=== PATIENT | male | born 1950 | race Caucasian/White ===

== ENCOUNTER 2016-07-13 11:19 | Emergency (ER) | payer MEDICARE ==
--- NOTE | 2016-07-13 11:53 | ED ---
Chest Pain HPI - General Chief Complaint: Chest Pain Stated Complaint: chest pain Time Seen by Provider: 07/13/16 11:31 Source: patient, family, RN notes reviewed, old records reviewed Mode of arrival: wheelchair Limitations: no limitations - History of Present Illness Initial Comments: This is a 65-year-old male with a history of esophageal cancer status post esophagectomy chemotherapy and recurrence of the same to his liver and lung who presents with complaints of chest pain. He complains of left upper anterior chest pressure. He states currently it's almost negligible feels like tightness. He states he chronically has about 5/10 pain from his cancer the pain in his chest is essentially gone at this time he's had it intermittently over last several days and over the [place] holiday. He states he did not feel nauseated but now feels like he could become nauseated. She denies any cough or phlegm production no fevers chills sweats. He denies any other complaints at this time. His last chemotherapy was approximately 4 weeks ago. He has a CAT scan shows pleural effusion elevated left hemidiaphragm and evidence of metastatic disease left lung. He denies any history of heart disease. MD Complaint: chest pain - Related Data Home Medications Medication Instructions Recorded Confirmed LORazepam [Ativan] 1 mg PO TID PRN 04/13/16 07/13/16 Mirtazapine [Remeron] 30 mg PO HS PRN 04/13/16 07/13/16 Prochlorperazine [Compazine] 10 mg PO Q6H PRN 04/13/16 07/13/16 Ibuprofen [Motrin] 400 mg PO Q6H PRN 05/31/16 07/13/16 oxyCODONE HCL 30 mg PO Q4H PRN 06/17/16 07/13/16 fentaNYL 75MCG/HR PATCH [Duragesic 75 mcg TRANSDERM Q48H 07/13/16 07/13/16 75MCG/HR] Previous Rx's Medication Instructions Recorded Albuterol Inhaler [Ventolin Hfa 2 puff INHALATION Q6HR PRN #1 07/13/16 Inhaler] inhaler Allergies Allergy/AdvReac Type Severity Reaction Status Date / Time No Known Allergies Allergy Verified 07/13/16 12:01 Review of Systems ROS Statement: Those systems with pertinent positive or pertinent negative responses have been documented in the HPI. ROS Other: All systems not noted in ROS Statement are negative. EKG Findings - EKG Results: EKG: interpreted by MEGHAN, sinus rhythm (Sinus rhythm with a rate of 82 QRS 76 QT /QTC of 372/444 poor R-wave progression artifact is present. No acute changes seen) Past Medical History Past Medical History: Cancer, Hypertension, Prostate Disorder Additional Past Medical History / Comment(s): Esophageal CA. Kidney stones. HX BPH. HAD Chemo IV 2 weeks on and 2 weeks off. History of Any Multi-Drug Resistant Organisms: None Reported Past Surgical History: Cholecystectomy, Hernia Repair Additional Past Surgical History / Comment(s): Removal of esophageal CA at [facility] 06/2015. Ischium soft tissue biopsy. schrapnel removed Past Anesthesia/Blood Transfusion Reactions: No Reported Reaction Past Psychological History: Anxiety Smoking Status: Never smoker Past Alcohol Use History: None Reported Past Drug Use History: None Reported - Past Family History Father Family Medical History: Cancer General Exam - General Exam Comments Initial Comments: This is a well-developed asthenic appearing awake alert oriented 3 male Limitations: no limitations General appearance: alert, in no apparent distress Head exam: Present: atraumatic, normocephalic, normal inspection Eye exam: Present: PERRL, EOMI, other (Pale conjunctiva). Absent: scleral icterus, conjunctival injection, periorbital swelling ENT exam: Present: mucous membranes dry Neck exam: Present: normal inspection. Absent: tenderness, meningismus, lymphadenopathy Respiratory exam: Present: decreased breath sounds. Absent: chest wall tenderness Cardiovascular Exam: Present: regular rate, normal rhythm, normal heart sounds. Absent: systolic murmur, diastolic murmur, rubs, gallop, clicks GI/Abdominal exam: Present: soft, normal bowel sounds. Absent: distended, tenderness, guarding, rebound, rigid Extremities exam: Present: full ROM, pedal edema (Pedal edema in the left which is not unusual for him.). Absent: tenderness Back exam: Present: normal inspection Neurological exam: Present: alert, oriented X3, CN II-XII intact Psychiatric exam: Present: normal affect, normal mood Skin exam: Present: warm, dry, intact, pallor Course Vital Signs 07/13/16 07/13/16 07/13/16 11:22 12:41 13:58 Temperature 97.7 F 98.3 F Pulse Rate 86 82 88 Respiratory 96 H 16 Rate Blood Pressure 133/78 110/67 O2 Sat by Pulse 96 98 Oximetry 07/13/16 14:03 Temperature Pulse Rate 96 Respiratory Rate Blood Pressure O2 Sat by Pulse Oximetry Chest Pain MDM - MDM I did reevaluate patient several occasions he is feeling improved after IV fluids and an updraft. He will be discharged she is a follow-up with his doctor return when necessary Disposition Clinical Impression: Atypical chest pain, Bronchospasm, acute, Dehydration, Esophageal cancer, Chronic anemia Disposition: HOME SELF-CARE Condition: Good Instructions: Bronchospasm (ED), Dehydration (ED), Chest Pain (ED) Prescriptions: Albuterol Inhaler [Ventolin Hfa Inhaler] 2 puff INHALATION Q6HR PRN #1 inhaler PRN Reason: Dyspnea
[2016-07-13 12:15] LABS: Anisocytosis Slight; Basophils % (A) 0 %; CH 29.2; CHCM 31.5; Eosinophils # (A) 0.1 k/uL (0-0.7); Eosinophils % (A) 2 %; HCT 30.9 % (39.0-53.0); HDW 3.21; Hypochromasia Slight; Luc # (Auto) 0.04; Luc % (Auto) 1; Lymphocytes # (A) 0.4 k/uL (1.0-4.8); Lymphocytes % (A) 13 %; MCH 29.8 pg (25.0-35.0); MCHC 32.1 g/dL (31.0-37.0); Mean Platelet Volume 7.4; Monocytes # (A) 0.2 k/uL (0-1.0); Monocytes % (A) 7 %; Neutrophils # (A) 2.6 k/uL (1.3-7.7); Neutrophils % (A) 77 %; RBC 3.32 m/uL (4.30-5.90); RDW 17.1 % (11.5-15.5); WBC 3.3 k/uL (3.8-10.6); WBC (Perox) 3.35
[2016-07-13 12:16] LABS: HGB 9.9 gm/dL (13.0-17.5)
[2016-07-13 12:17] LABS: ALT 20 U/L (21-72); AST 15 U/L (17-59); Alkaline Phosphatase 120 U/L (38-126); Anion Gap 11 mmol/L; Blood Urea Nitrogen 16 mg/dL (9-20); Calcium 10.1 mg/dL (8.4-10.2); Carbon Dioxide 29 mmol/L (22-30); Chloride 103 mmol/L (98-107); Glucose 151 mg/dL (74-99); Magnesium 1.8 mg/dL (1.6-2.3); Non-African American GFR(MDRD) >60 (>60 ml/min/1.73 sqM); Potassium 3.8 mmol/L (3.5-5.1); Sodium 143 mmol/L (137-145); Total Bilirubin 0.6 mg/dL (0.2-1.3); Total Protein 6.1 g/dL (6.3-8.2)
[2016-07-13 12:39] LABS: INR 1.1 (<1.1); Partial Thromboplastin Time 31.5 sec (22.0-30.0); Prothrombin Time 11.4 sec (9.0-12.0)
[2016-07-13 12:40] LABS: Creatine Kinase 22 U/L (55-170)
[2016-07-13 12:41] VITALS: RESP 16
--- NOTE | 2016-07-13 12:46 | XR ---
EXAMINATION TYPE: XR chest 2V DATE OF EXAM: 07/13/2016 12:17 PM COMPARISON: 05/31/2016 HISTORY: Chest pain FINDINGS: There is a 1 cm nodule the right upper lobe noted. Small left pleural effusion. Mediport catheter see n. The form of the anterior margin of the left lower rib cage. Been the basis of bony metastases. Api [place] left pleural thickening noted. Additional skeletal findings seen by bone scan not as apparent on x-ray. IMPRESSION: 1. Mild left apical pleural thickening is new. Nodularity in the right upper lobe is noted and report ed by recent CT. 2. Small left pleural effusion
[2016-07-13 12:52] LABS: Creatine Kinase MB 0.5 ng/mL (0.0-2.4); Troponin I <0.012 ng/mL (0.000-0.034)
[2016-07-13] MEDS ORDERED: SODIUM CHLORIDE 0.9% 500 ML IV STA (13:53)
[2016-07-13] MEDS ORDERED: IPRATROPIUM-ALBUTEROL 3 ML NEB INHALATION STA (13:53)
[2016-07-13 14:50] VITALS: BP 126/79; PULSE 82; TEMP 98
== END 2016-07-13 14:49 | disposition home or self-care (01) ==
LOC: EC 11:19
DX: J98.01 Acute bronchospasm (principal); E86.0 Dehydration; D64.9 Anemia, unspecified; J90 Pleural effusion, not elsewhere classified; R91.8 Other nonspecific abnormal finding of lung field; C15.9 Malignant neoplasm of esophagus, unspecified; C78.7 Secondary malignant neoplasm of liver and intrahepatic bile duct; C78.00 Secondary malignant neoplasm of unspecified lung; Z92.21 Personal history of antineoplastic chemotherapy; Z79.899 Other long term (current) drug therapy
CPT/HCPCS: 36415; 71020; 80053; 82550; 82553; 83735; 83880; 84484; 85025; 85610; 85730; 93005; 94640; 99285

== ENCOUNTER 2016-08-03 06:33 | Observation (INO) | payer MEDICARE ==
[2016-08-03] MEDS ORDERED: SODIUM CHLORIDE 0.9% 500 ML IV ONE (06:34)
[2016-08-03] MEDS ORDERED: HYDROmorphone 1 MG/ML 1 ML SYRINGE IVP STA (06:34)
--- NOTE | 2016-08-03 06:50 | ED ---
Fall HPI - General Source: patient, family, EMS Mode of arrival: EMS <Domo Dougherty - Last Filed: 08/03/16 07:12> <Hugh Villavicencio - Last Filed: 08/03/16 11:40> - General Chief Complaint: Fall Stated Complaint: fall-standing height Time Seen by Provider: 08/03/16 06:33 - History of Present Illness Initial Comments: This is a 66-year-old male with a history of esophageal cancer who presents here in [facility] after a fall. He states he was ambulating with his walker and the wheel caught the edge of the stair. He hit his left ribs on the side of the stairs and then he rotated over and hit his right hip on the ground. He states he also went back and hit the back of his head on the ground. He denies loss of consciousness. He states he was not able to get up because of the pain. He states he has worsening pain in his left chest after he takes deep breaths. He denies any lower extremity pain. He does state that he has some pain in his left hip. No headache, neck pain, nausea, or vomiting. No preceding symptoms. No other complaints. (Domo Dougherty) - Related Data Home Medications Medication Instructions Recorded Confirmed Mirtazapine [Remeron] 30 mg PO HS 04/13/16 08/03/16 Ibuprofen [Motrin] 400 mg PO Q6H PRN 05/31/16 08/03/16 oxyCODONE HCL 30 mg PO Q4H 06/17/16 08/03/16 fentaNYL 75MCG/HR PATCH [Duragesic 1 patch TRANSDERM Q48H 07/13/16 08/03/16 75MCG/HR] LORazepam [Ativan] 0.5 mg PO Q8H 08/03/16 08/03/16 Loperamide [Imodium] 2 mg PO QID PRN 08/03/16 08/03/16 Nivolumab [Opdivo] 240 mg IV Q14D 08/03/16 08/03/16 Polyethylene Glycol 3350 [Miralax] 17 gm PO DAILY 08/03/16 08/03/16 fentaNYL 100MCG/HR PATCH 1 patch TRANSDERM Q48H 08/03/16 08/03/16 [Duragesic 100MCG/HR] oxyCODONE ER [OxyCONTIN 20MG E.R] 20 mg PO Q12HR 08/03/16 08/03/16 Allergies Allergy/AdvReac Type Severity Reaction Status Date / Time No Known Allergies Allergy Verified 08/03/16 06:36 Review of Systems ROS Other: All systems not noted in ROS Statement are negative. <Domo Dougherty - Last Filed: 08/03/16 07:12> ROS Other: All systems not noted in ROS Statement are negative. <Hugh Villavicencio - Last Filed: 08/03/16 11:40> ROS Statement: Those systems with pertinent positive or pertinent negative responses have been documented in the HPI. Past Medical History Past Medical History: Cancer, Hypertension, Prostate Disorder Additional Past Medical History / Comment(s): Esophageal CA. Kidney stones. HX BPH. HAD Chemo IV 2 weeks on and 2 weeks off. History of Any Multi-Drug Resistant Organisms: None Reported Past Surgical History: Cholecystectomy, Hernia Repair Additional Past Surgical History / Comment(s): Removal of esophageal CA at [facility] 06/2015. Ischium soft tissue biopsy. schrapnel removed Past Anesthesia/Blood Transfusion Reactions: No Reported Reaction Past Psychological History: Anxiety Smoking Status: Never smoker Past Alcohol Use History: None Reported Past Drug Use History: None Reported - Past Family History Father Family Medical History: Cancer <Domo Dougherty - Last Filed: 08/03/16 07:12> General Exam Limitations: altered mental status <Domo Dougherty - Last Filed: 08/03/16 07:12> <Hugh Villavicencio - Last Filed: 08/03/16 11:40> - General Exam Comments Initial Comments: Constitutional: Awake alert Appears comfortable, cachectic Head: Normocephalic atraumatic Eyes: no conjunctival injection No scleral icterus EOMI, pupils 4 mm reactive bilaterally Neck: No JVD Supple, no spinous process tenderness Heart: Regular rate rhythm normal S1-S2 no murmurs Lungs: Clear to auscultation bilaterally No wheezing No rales, tenderness to palpation along the entire left chest wall, no crepitus Abdomen: Soft nondistended nontender Extremities: Non edematous DP pulses intact Radial pulses intact, pelvis is stable without any tenderness with log rolling Neuro: A&Ox3 No focal neurologic deficits Psych: Appropriate mood and affect (Domo Dougherty) Course <Domo Dougherty - Last Filed: 08/03/16 07:12> <Hugh Villavicencio - Last Filed: 08/03/16 11:40> Vital Signs 08/03/16 08/03/16 08/03/16 06:34 09:30 09:39 Temperature 98.1 F 91 F L Pulse Rate 89 74 86 Respiratory 18 16 16 Rate Blood Pressure 150/95 133/83 123/82 O2 Sat by Pulse 98 91 L 95 Oximetry 08/03/16 11:11 Temperature Pulse Rate 82 Respiratory Rate Blood Pressure 113/77 O2 Sat by Pulse 95 Oximetry - Reevaluation(s) Reevaluation #1: 08/03/16 06:53 EKG showing atrial fibrillation with a rate of 84. No ST segment changes or T- wave inversions. QTC 423. Other intervals normal. No ectopy. (Domo Dougherty) Reevaluation #2: 08/03/16 07:13 Patient's care transitioned to Dr. Villavicencio (Domo Dougherty) Medical Decision Making <Domo Dougherty - Last Filed: 08/03/16 07:12> - Lab Data Result diagrams: 08/03/16 06:58 08/03/16 06:58 - Radiology Data Radiology results: report reviewed (Did review the imaging and reports evidence of metastatic disease no definite acute findings.), image reviewed <Hugh Villavicencio - Last Filed: 08/03/16 11:40> - Medical Decision Making I did discuss findings with the patient family patient be admitted for IV hydration and electrolyte replacement. (Hugh Villavicencio) - Lab Data Lab Results 08/03/16 08/03/16 08/03/16 Range/Units 06:58 06:58 06:58 WBC 3.7 L (3.8-10.6) k/uL RBC 3.23 L (4.30-5.90) m/uL Hgb 9.6 L (13.0-17.5) gm/dL Hct 29.9 L (39.0-53.0) % MCV 92.7 (80.0-100.0) fL MCH 29.8 (25.0-35.0) pg MCHC 32.2 (31.0-37.0) g/dL RDW 16.4 H (11.5-15.5) % Plt Count 252 (150-450) k/uL Neutrophils % 75 % Lymphocytes % 16 % Monocytes % 5 % Eosinophils % 2 % Basophils % 0 % Neutrophils # 2.8 (1.3-7.7) k/uL Lymphocytes # 0.6 L (1.0-4.8) k/uL Monocytes # 0.2 (0-1.0) k/uL Eosinophils # 0.1 (0-0.7) k/uL Basophils # 0.0 (0-0.2) k/uL Hypochromasia Slight Anisocytosis Slight PT 11.9 (9.0-12.0) sec INR 1.2 (<1.1) APTT 60.9 H (22.0-30.0) sec Sodium 141 (137-145) mmol/L Potassium 3.1 L (3.5-5.1) mmol/L Chloride 100 (98-107) mmol/L Carbon Dioxide 33 H (22-30) mmol/L Anion Gap 8 mmol/L BUN 19 (9-20) mg/dL Creatinine 0.77 (0.66-1.25) mg/dL Est GFR (MDRD) Af Amer >60 (>60 ml/min/1.73 sqM) Est GFR (MDRD) Non-Af >60 (>60 ml/min/1.73 sqM) Glucose 98 (74-99) mg/dL Calcium 12.9 H (8.4-10.2) mg/dL Magnesium 1.7 (1.6-2.3) mg/dL Total Bilirubin 0.7 (0.2-1.3) mg/dL AST 18 (17-59) U/L ALT 25 (21-72) U/L Alkaline Phosphatase 111 (38-126) U/L Total Protein 6.1 L (6.3-8.2) g/dL Albumin 2.9 L (3.5-5.0) g/dL Disposition <Domo Dougherty - Last Filed: 08/03/16 07:12> <Hugh Villavicencio - Last Filed: 08/03/16 11:40> Clinical Impression: Fall, Esophageal cancer, Hypokalemia, Dehydration, Failure to thrive in adult Disposition: ADMITTED IP TO THIS HOSP Condition: Stable
[2016-08-03 07:16] LABS: Anisocytosis Slight; Basophils % (A) 0 %; CHCM 32.5; Eosinophils # (A) 0.1 k/uL (0-0.7); Eosinophils % (A) 2 %; HCT 29.9 % (39.0-53.0); HDW 3.36; HGB 9.6 gm/dL (13.0-17.5); Hypochromasia Slight; Luc # (Auto) 0.07; Luc % (Auto) 2; Lymphocytes # (A) 0.6 k/uL (1.0-4.8); Lymphocytes % (A) 16 %; MCH 29.8 pg (25.0-35.0); MCHC 32.2 g/dL (31.0-37.0); MCV 92.7 fL (80.0-100.0); Mean Platelet Volume 6.9; Monocytes # (A) 0.2 k/uL (0-1.0); Monocytes % (A) 5 %; Neutrophils # (A) 2.8 k/uL (1.3-7.7); Neutrophils % (A) 75 %; RBC 3.23 m/uL (4.30-5.90); RDW 16.4 % (11.5-15.5); WBC 3.7 k/uL (3.8-10.6); WBC (Perox) 3.82
[2016-08-03 07:21] LABS: INR 1.2 (<1.1); Prothrombin Time 11.9 sec (9.0-12.0)
[2016-08-03 07:44] LABS: Partial Thromboplastin Time 60.9 sec (22.0-30.0)
[2016-08-03 07:53] LABS: ALT 25 U/L (21-72); AST 18 U/L (17-59); Alkaline Phosphatase 111 U/L (38-126); Anion Gap 8 mmol/L; Blood Urea Nitrogen 19 mg/dL (9-20); Calcium 12.9 mg/dL (8.4-10.2); Carbon Dioxide 33 mmol/L (22-30); Chloride 100 mmol/L (98-107); Glucose 98 mg/dL (74-99); Magnesium 1.7 mg/dL (1.6-2.3); Non-African American GFR(MDRD) >60 (>60 ml/min/1.73 sqM); Potassium 3.1 mmol/L (3.5-5.1); Sodium 141 mmol/L (137-145); Total Bilirubin 0.7 mg/dL (0.2-1.3); Total Protein 6.1 g/dL (6.3-8.2)
--- NOTE | 2016-08-03 07:55 | XR ---
AP pelvis HISTORY: Trauma and pain Frontal view of the pelvis correlated to left hip 31 May 2016 The lytic destructive lesion involving the left ischium is again noted. No acute fracture or dislocat ion is evident. Surgical clips present in the soft tissues. IMPRESSION: Metastatic disease
--- NOTE | 2016-08-03 08:00 | XR ---
Chest x-ray with left RIBS HISTORY: Trauma and pain Frontal view of the chest, 3 views of the left ribs submitted. Correlation to chest x-ray 13 July 2016, bone scan 18 June 2016, CT scan chest abdomen and pelvi s 18 June 2016 Permeative pattern present in the proximal left humerus compatible with metastatic disease. Apical pl eural thickening is again noted. No pneumothorax or pleural effusion is evident. Soft tissue swelling in the supraclavicular location with associated calcification likely related to metastatic lesion to the first rib. No displaced fracture is evident. Basilar atelectatic changes are suspected. Patient is rotated. Ill-defined increased attenuation present in the right midlung, right lower lung. Difficu lt to exclude metastasis to the lungs. IMPRESSION: Metastatic disease.
--- NOTE | 2016-08-03 08:17 | CT ---
EXAMINATION TYPE: CT brain buffyine wo con DATE OF EXAM: 08/03/2016 7:33 AM COMPARISON: 05/31/2016 HISTORY: 66-year-old male with fall from standing, struck back of head CT DLP: 1830 mGycm Automated exposure control for dose reduction was used. Technique: Examination of the head was done in axial plane without intravenous contrast. Coronal and sagittal reconstructions performed. CT of the cervical spine was obtained in axial plane without intravenous injection of contrast mater ial. Coronal and sagittal reformatted images were obtained from the axial views for evaluation of f ractures, spinal alignment and canal. FINDINGS: Head: There is no evidence of acute intracranial hemorrhage, acute ischemic changes, mass, mass-effect, or extra-axial fluid collection. There is no effacement of cerebral sulci or basal subarachnoid cister ns. There is no hydrocephalus. There is no midline shift. Chaudhary-white matter distinction is preserv ed. Stable mild generalized supratentorial volume loss. No calvarial fracture. Frontal air-fluid level within the left sphenoid sinus. Stable minimal opacifi cation of the inferior most left mastoid air cells. Orbits and globes appear intact. Cervical spine: No craniocervical junction abnormality, predental space widening, or prevertebral soft tissue swellin g. Stable degenerative grade 1 anterolistheses at C3-C4, C4-C5, C5-C6, and C7-T1. Suspect old [facility]'s fractures C6 and C7 spinous processes. Moderate to advanced disc/endplate degenerative change mid to lower cervical spine and hypertrophic f acet and uncovertebral joint arthropathy. Variable mild narrowing of the spinal canal in the lower ce rvical spine and moderate multilevel neural foraminal stenoses, moderate to severe in the lower cervi [place] spine is essentially unchanged. There is new diffuse anasarca-type change. Progressive enlargement of the patient's left first rib de structive lesion with pronounced new hypodensity probably representing necrosis. Right upper lobe met astatic disease appears to have slightly enlarged in the interval and there may be a new focus in the left upper lobe. I right chest wall injection port is present and there are postsurgical changes maria ines ng the esophagus. Sagittal and coronal reformatted images confirm above findings. COMBINED IMPRESSION: 1. No acute intracranial abnormality seen. Stable mild atrophy. 2. No acute fracture of the cervical spine. Moderate to advanced spondylotic change with multilevel d egenerative grade 1 anterolistheses are similar. 3. Enlarging destructive lesion involving the left first rib compatible with known metastatic disease . Metastatic pulmonary nodules in the right upper lobe is slightly enlarged and there is at least one new nodule in the left upper lobe. 4. Correlate for acute sphenoid sinusitis.
[2016-08-03] MEDS ORDERED: MAGNESIUM SULFATE-D5W PMX 1 GM in DEXTROSE/WATER 1 100ML.BAG IVPB ONE (09:02)
[2016-08-03] MEDS: POTASSIUM CHLORIDE 20 MEQ, LIDOCAINE 2% INJ 20 MG in SODIUM CHLORIDE 0.9% 100 ML IVPB ONE ×2 (10:56→10:58)
[2016-08-03] MEDS ORDERED: NALOXONE 0.4 MG/ML 1 ML VIAL IV PRN (11:40)
[2016-08-03] MEDS ORDERED: LOPERAMIDE 2 MG CAP PO PRN (11:43)
[2016-08-03] MEDS ORDERED: IBUPROFEN 400 MG TAB PO PRN (11:43)
[2016-08-03] MEDS ORDERED: NIVOLUMAB 240 MG IV SCH (11:45)
[2016-08-03 16:10] LABS: Appearance,Urine Turbid (Clear); Bacteria,Urine Moderate /hpf; Bilirubin,Urine Negative (Negative); Glucose,Urine (UA) Negative (Negative); Ketones,Urine Negative (Negative); Leukocyte Esterase,Urine Large (Negative); Mucus,Urine Many /hpf; Nitrite,Urine Negative (Negative); PH, Urine 5.5 (5.0-8.0); Particle Count 20995; Protein,Urine 1+ (Negative); RBC,Urine >182 /hpf (0-5); Specific Gravity,Urine 1.015 (1.001-1.035); Squamous Epithelial Cell,Urine 7 /hpf (0-4); UA Billing (MACRO vs. MICRO) MICRO; Urobilinogen,Urine <2.0 mg/dL (<2.0); WBC,Urine 177 /hpf (0-5)
[2016-08-03] MEDS: 0.9% NACL WITH KCL 20 MEQ/L 1,000 ML IV SCH (18:13)
[2016-08-03] MEDS: oxyCODONE ER 20 MG TAB.ER.12H PO SCH (21:27)
[2016-08-03] MEDS: MIRTAZAPINE 15 MG TAB PO SCH (21:29)
[2016-08-03] MEDS ORDERED: LORazepam 0.5 MG TAB PO SCH (22:00)
[2016-08-04] MEDS: LORazepam 0.5 MG TAB PO SCH ×4 (02:45→20:48)
[2016-08-04] MEDS: 0.9% NACL WITH KCL 20 MEQ/L 1,000 ML IV SCH ×2 (04:11→13:22)
[2016-08-04 06:57] LABS: Anion Gap 3 mmol/L; Blood Urea Nitrogen 19 mg/dL (9-20); Calcium 12.3 mg/dL (8.4-10.2); Carbon Dioxide 36 mmol/L (22-30); Chloride 103 mmol/L (98-107); Glucose 91 mg/dL (74-99); Non-African American GFR(MDRD) >60 (>60 ml/min/1.73 sqM); Potassium 3.5 mmol/L (3.5-5.1); Sodium 142 mmol/L (137-145)
[2016-08-04] MEDS: POLYETHYLENE GLYCOL 3350 17 GM POWD.PACK PO SCH (07:48)
[2016-08-04] MEDS: DRONABINOL 2.5 MG CAP PO SCH ×2 (07:51→17:00)
[2016-08-04] MEDS: oxyCODONE ER 20 MG TAB.ER.12H PO SCH ×2 (07:54→20:49)
[2016-08-04] MEDS ORDERED: RX INFO: IV CONTRAST WAS GIVEN 1 EACH MISC MISCELLANE PRN (09:16)
--- NOTE | 2016-08-04 10:56 | HP ---
DATE OF ADMISSION: 08/03/2016 PRESENTING COMPLAINT: Falls, weak, tired. HISTORY OF PRESENTING COMPLAINT: This is a pleasant 66-year-old patient of Dr. Heath and patient is also followed by Dr. Arredondo from oncology. Patient was diagnosed with esophageal cancer and had partial esophagectomy in 2003 at [facility]. The patient did get chemotherapy but pretty much has failed chemotherapy. Patient's is at the bedside. Patient progressively has been losing weight. Appetite is going down. The patient became more and more weak and needs help. The patient is having more and more frequent falls. Overall prognosis is guarded. Patient's other chronic stable medical conditions include kidney stones, anxiety, insomnia. REVIEW OF SYSTEMS: CONSTITUTIONAL: Weight loss, loss of appetite. HEENT: Decreased hearing. RESPIRATORY: None. CARDIOVASCULAR: None. GASTROINTESTINAL: None. GENITOURINARY: None. MUSCULOSKELETAL: Some pain in the joints. DERMATOLOGICAL: None. PSYCHIATRY: Some anxiety. Trouble sleeping. NEUROLOGICAL: None. PAST MEDICAL HISTORY: Esophageal cancer, kidney stones, hypertension. PAST SURGICAL HISTORY: Cholecystectomy, partial ( ) removed in 2013, left ischium soft tissue biopsy. SOCIAL HISTORY: . Does not smoke or drink alcohol. FAMILY HISTORY: Noncontributory to the presentation. HOME MEDICATIONS: 1. Oxycodone 30 mg p.o. every4 hours. 2. OxyContin 20 mg. 3. ( ) 20 mg every 12. 4. Fentanyl 75 mg patch every 48 hours. 5. Fentanyl 100 mcg patch every 48 hours. 6. MiraLax 17 grams daily. 7. Opdivo 240 mg IV every 14 days. 8. ( ) 25 mg at bedtime. 9. Imodium 2 mg q.i.d. p.r.n. 10. Ativan 0.5 orally every 8 hours. 11. Motrin 1 mg every 6 hours p.r.n. ALLERGIES: None. On examination, temperature 97.7, pulse 99, respirations 20, blood pressure 142/81, pulse ox 95% on room air. GENERAL APPEARANCE: Emaciated. Wasting of muscle mass. Bony prominences. BMI of 15.5. Lying in bed, tired appearing. EYES: Pupils equal. Conjunctivae. HEENT: Oral cavity normal, dry. NECK: JVD not raised. Mass not palpable. RESPIRATORY: Effort normal. LUNGS: Diminished breath sounds. CARDIOVASCULAR: First and second sounds normal. No edema. ABDOMEN: Soft, nontender. Liver and spleen and spleen not palpable. LYMPHATIC: Palpable in or axillae. PSYCHIATRY: Alert and oriented times. Mood and affect low. SKIN: Right chest wall port is present. INVESTIGATIONS: White count 3.7, hemoglobin 9.6, platelets 252, potassium 3.1. BUN and creatinine normal. Albumin 2.9. Urine culture positive for UTI. ASSESSMENT: 1. Acute severe urinary tract infection. 2. Severe protein calorie malnutrition from poor oral intake from underlying malignancy. 3. Esophageal cancer. 4. Hypokalemia. 5. Benign prostatic hypertrophy. 6. Chronic insomnia. PLAN: I had a lengthy talk with the patient and , overall prognosis not good. Home medications will be resumed. We will also put the patient on Marinol to see if it will stimulate his appetite. We will get physical therapy involved. Nutritional supplements to given. Overall prognosis is not good. Did talk to patient and regarding artificial feeding but they are not keen for that and it may not be a good option.
--- NOTE | 2016-08-04 11:56 | CT ---
EXAMINATION TYPE: CT brain w con DATE OF EXAM: 08/04/2016 11:03 AM COMPARISON: NONE HISTORY: Frequent falls, esophagus CA CT DLP: 1107.8 mGycm Automated exposure control for dose reduction was used. CONTRAST: CT scan of the head is performed with IV Contrast, patient injected with 100 ml mL of Omnipaque 300. FINDINGS: There is no abnormal enhancing mass or midline shift identified. The ventricles and sulci are within normal limits in size. The globes are intact and the visualized sinuses are remarkable for inflamma tory change in the maxillary sinus, sphenoid sinus, inflammatory change present in the mastoid air ce lls on the left. Punctate calcification present at the lateral eyelid on the right at the level of th e skin surface. Stable brain findings. IMPRESSION: Sinus disease Negative contrast enhanced head CT exam.
[2016-08-04 12:15] VITALS: BMI 20.7
--- NOTE | 2016-08-04 17:07 | P.CONS ---
History of Present Illness - Reason for Consult Consult date: 08/04/16 - Chief Complaint fall, confusion - History of Present Illness Mr. Ahn is a very pleasant male pt of Dr. Arredondo with en extensive treatment history for malignancy. In Mar 2014 pt presented with one black stool, mild epigastric discomfort and heartburn of one week duration, Hgb was noted to be 6 gm/dl, EGD on 04/05/2014 revealed 1.5cm ulceration at GE junction, long segment of Pool's esophagus,a clean based duodenal ulcer and 3 small ulcerations in hiatal hernia, biopsy from GE junction revealed poorly differentiated invasive squamous cell carcinoma. Staging PET scan done on 04/13 was negative for regional node involvement or metastatic disease, staging EUS revealed a superficial tumor [id number], he had esophagectomy at [facility] on 04/2014, pathological stage [id number], 1/7 reginonal nodes involved. He started adjuvant xeloda x 1 cycle in August 2014, then started adjuvant concurrent xeloda/radiation on 09/11/2014, completed on 10/18/2014, continued adjuvant xeloda until 12/25/2014. He started to have left hip pain in September 2015, was evaluated by Orthopedics, XRay revealed a lytic lesion in left ischial bone, MRI on 11/20/2015 revealed large destructive bone lesion associated with soft tissue mass. On 11/27/2015 bone scan revealed suspicious uptake in left ischial bone, non specific uptake in few sclerotic spine lesions, CT CAP was negative for any other visceral disease, 12/09/2015,CT guided biopsy of left ischial bone was positive for metastatic squamous cell carcinoma consistent with upper GI primary. 12/20/2015 PET scan revealed suspicious uptake in left pelvic bone, otherwise negative. He started palliative XRT to left ishial bone on 12/25/2015 and completed on 01/07/2016. Follow up scan CT CAP 03/01/2016 revealed evidence of disease progression. He started cisplatin/xeloda 03/18/2016. After 2 cycles on 05/11/2016 CT CAP revealed evidence of disease progression and bilateral PE, he was started on xarelto, the chemo discontinued. He started taxotere every 3 weeks on 2015. Follow up CT on 06/18/2016 revealed evidence of disease progression. He was started on nivolumab and is s/p 2 cycles. Pt is answering some questions but, he looks to his for confirmation of answers, he fell at home and hit his head, his notes rapid progression of weakness, she states agitation, combative at times and confused, requires pain meds ATC. Review of Systems ROS unobtainable: due to mental status Constitutional: Reports as per HPI Past Medical History Past Medical History: Cancer, Hypertension, Prostate Disorder, Pulmonary Embolus (PE), Renal Disease Additional Past Medical History / Comment(s): Esophageal CA-last chemo 2 weeks ago [facility], febrile neutropenia/sepsis r/t chemo immunosuppression, recent insomnia but pt states now is sleeping better, kidney stones, BPH, ? dementia. History of Any Multi-Drug Resistant Organisms: None Reported Past Surgical History: Cholecystectomy, Hernia Repair Additional Past Surgical History / Comment(s): [facility], Ischium soft tissue biopsy, mediport to R subclavian, feeding tube insertion and removal, EGD/colonoscopy, Coco fundoplication, schrapnel removed from back ([place]), vasectomy with post op hematoma then surgery for hematoma, bilateral cataract removal with lens implants. Past Anesthesia/Blood Transfusion Reactions: Motion Sickness, Postoperative Nausea & Vomiting (PONV) Past Psychological History: Anxiety Additional Psychological History / Comment(s): Pt resides with his spouse. He uses a walker to ambulate. He has not driven for awhile d/t illness, his spouse drives him to appts. He has a home care person (does not recall name of company) who come to the house daily, manages his meds and assists him with ADLs as needed. He is a [place] . He served in the [employer]. Smoking Status: Never smoker Past Alcohol Use History: None Reported Past Drug Use History: None Reported - Past Family History Father Family Medical History: Cancer Additional Family Medical History / Comment(s): Father had throat cancer. Mother Family Medical History: No Reported History Additional Family Medical History / Comment(s): Mother is healthy and is 86yrs old. Medications and Allergies Home Medications Medication Instructions Recorded Confirmed Type Mirtazapine [Remeron] 30 mg PO HS 04/13/16 08/03/16 History Ibuprofen [Motrin] 400 mg PO Q6H PRN 05/31/16 08/03/16 History oxyCODONE HCL 30 mg PO Q4H 06/17/16 08/03/16 History fentaNYL 75MCG/HR PATCH [Duragesic 1 patch TRANSDERM Q48H 07/13/16 08/03/16 History 75MCG/HR] LORazepam [Ativan] 0.5 mg PO Q8H 08/03/16 08/03/16 History Loperamide [Imodium] 2 mg PO QID PRN 08/03/16 08/03/16 History Nivolumab [Opdivo] 240 mg IV Q14D 08/03/16 08/03/16 History Polyethylene Glycol 3350 [Miralax] 17 gm PO DAILY 08/03/16 08/03/16 History fentaNYL 100MCG/HR PATCH 1 patch TRANSDERM Q48H 08/03/16 08/03/16 History [Duragesic 100MCG/HR] oxyCODONE ER [OxyCONTIN 20MG E.R] 20 mg PO Q12HR 08/03/16 08/03/16 History Allergies Allergy/AdvReac Type Severity Reaction Status Date / Time No Known Allergies Allergy Verified 08/03/16 06:36 Physical Exam Vitals: Vital Signs Temp Pulse Pulse Pulse Resp BP BP 08/04/16 07:00 98.2 F 89 18 135/82 08/03/16 23:00 97.8 F 82 18 122/74 08/03/16 18:15 16 08/03/16 16:50 97.7 F 99 20 142/81 08/03/16 15:44 98.8 F 98 18 162/90 08/03/16 14:05 98.1 F 79 18 151/90 08/03/16 12:40 85 18 139/79 Pulse Ox 08/04/16 07:00 97 08/03/16 23:00 95 08/03/16 18:15 08/03/16 16:50 95 08/03/16 15:44 96 08/03/16 14:05 96 08/03/16 12:40 98 Intake and Output 08/03/16 08/04/16 08/04/16 22:59 06:59 14:59 Intake Total 350 Balance 350 Intake: Intake, IV Titration 350 Amount 0.9% NaCl with KCl 20 Meq 350 /l 1,000 ml @ 100 mls/hr IV .Q10H PENDING SALE TO [facility] Rx#: [id number] Other: Voiding Method Bedside Commode Bedside Commode Bedside Commode Urinal Urinal # Voids 1 1 Weight 63.503 kg Patient Weight 08/05/16 06:59 Weight 63.503 kg - Constitutional frail, cachetic General appearance: cooperative, no acute distress, thin - EENT Eyes: anicteric sclerae ENT: normal oropharynx - Neck Neck: no lymphadenopathy - Respiratory Respiratory: bilateral: CTA, diminished - Cardiovascular Heart sounds: normal: S1, S2 Abnormal Heart Sounds: no systolic murmur, no diastolic murmur, no rub, no S3 Gallop, no S4 Gallop, no click, no other leg Peripheral Edema: bilateral: None - Gastrointestinal General gastrointestinal: no absent bowel sounds, no decreased bowel sounds, no distended, no hepatomegaly, no hyperactive bowel sounds, normal bowel sounds, no organomegaly, no rigid, no scaphoid, soft, no splenomegaly, no tenderness, no umbilical hernia, no ventral hernia - Integumentary Integumentary: pale - Neurologic Neurologic: CNII-XII intact - Musculoskeletal Musculoskeletal: generalized weakness (severe) - Psychiatric Psychiatric: no appropriate affect, no intact judgment & insight Results CBC & Chem 7: 08/03/16 06:58 08/04/16 06:27 Labs: Abnormal Lab Results - Last 24 Hours (Table) 08/03/16 08/04/16 Range/Units 15:40 06:27 Carbon Dioxide 36 H (22-30) mmol/L Calcium 12.3 H (8.4-10.2) mg/dL Urine Protein 1+ H (Negative) Urine Blood Large H (Negative) Ur Leukocyte Esterase Large H (Negative) Urine RBC >182 H (0-5) /hpf Urine WBC 177 H (0-5) /hpf Urine WBC Clumps Few H (None) /hpf Ur Squamous Epith Cells 7 H (0-4) /hpf Urine Bacteria Moderate H (None) /hpf Hyaline Casts 64 H (0-2) /lpf Urine Mucus Many H (None) /hpf Urine Yeast (Budding) Few H (None) /hpf Comments: multiple xray reports reviewed, no acute fracture or head trauma described Assessment and Plan (1) Esophageal adenocarcinoma Narrative/Plan: Concern is that malignancy is too advanced for treatment to get under control. Pt has had 2 cycles of nivolumab, usually 4 cycles are required before images are evaluated for objective response. Close monitoring and examination of the pt provide subjective info that would support good response, unfortunately pt is not improving, he is declining. At this time we will treat supportively, hydration, treat UTI, and see how pt recovers. If he continues to do poorly we will discuss with plan of care. did confirm that pt had previously expressed no desire to be resuscitated or maintained on life support, code status has been updated. We will follow pt progress. Status: Acute (2) Anemia aplastic aregenerative Narrative/Plan: Stable, no transfusion at this time Status: Chronic Plan: discussed patient wishes are known to be no CPR, intubation. Code status updated Pt being treated for UTI, may be contributing to confusion, AMS. CT head with contrast ordered to evaluate for metastatic disease.
--- NOTE | 2016-08-04 18:08 | PN ---
DATE OF SERVICE: 08/04/2016 PRESENTING COMPLAINT: Falls, weak, tired. INTERVAL HISTORY: This is a patient diagnosed with esophageal cancer not respond to treatment, Presented with anorexia, weight loss, subsequently weak, tired, also has underlying urinary tract infection. Patient's son and daughter at the bedside. Review of systems done for constitutional, cardiovascular, GI, pulmonary; relevant findings as above. Current medications include IV ceftriaxone. On examination, temperature 98.2, pulse 69, respirations 18, blood pressure 135/82, pulse ox 99% on room air. GENERAL APPEARANCE: Lying in bed. EYES: Pupils equal. Conjunctivae pale. NECK: JVD not raised. Mass not palpable. RESPIRATORY: Effort normal. LUNGS: Diminished breath sounds. CARDIOVASCULAR: Positive edema. ABDOMEN: Soft. Nontender. Liver and spleen not palpable. INVESTIGATIONS: Potassium 3.5. BUN and creatinine are normal. ASSESSMENT: 1. Acute severe urinary tract infection. 2. Severe protein calorie malnutrition from poor oral intake from underlying malignancy. 3. Esophageal cancer having not responded to treatment. 4. Hyperkalemia. 5. Benign prostatic hypertrophy. 6. Chronic insomnia. 7. Medical debility from underlying cancer. 8. Anorexia significant from underlying cancer. PLAN: Current antibiotic, Marinol, switched over to regular diet. Care was discussed with the on the phone and two sons at the bedside. Prognosis is guarded. Slow to respond.
[2016-08-04] MEDS: MIRTAZAPINE 15 MG TAB PO SCH (20:49)
[2016-08-05] MEDS: 0.9% NACL WITH KCL 20 MEQ/L 1,000 ML IV SCH ×4 (00:08→22:41)
[2016-08-05 06:43] LABS: Anisocytosis Slight; CH 29.7; CHCM 31.4; HCT 28.3 % (39.0-53.0); HDW 3.24; HGB 8.9 gm/dL (13.0-17.5); Hypochromasia Slight; MCH 29.9 pg (25.0-35.0); MCHC 31.6 g/dL (31.0-37.0); MCV 94.8 fL (80.0-100.0); Mean Platelet Volume 7.1; RBC 2.98 m/uL (4.30-5.90); RDW 16.5 % (11.5-15.5); WBC 4.3 k/uL (3.8-10.6)
[2016-08-05 07:35] LABS: ALT 23 U/L (21-72); AST 14 U/L (17-59); Alkaline Phosphatase 101 U/L (38-126); Anion Gap 8 mmol/L; Blood Urea Nitrogen 17 mg/dL (9-20); Calcium 12.4 mg/dL (8.4-10.2); Carbon Dioxide 31 mmol/L (22-30); Chloride 105 mmol/L (98-107); Glucose 88 mg/dL (74-99); Non-African American GFR(MDRD) >60 (>60 ml/min/1.73 sqM); Potassium 3.7 mmol/L (3.5-5.1); Sodium 144 mmol/L (137-145); Total Bilirubin 0.6 mg/dL (0.2-1.3); Total Protein 5.7 g/dL (6.3-8.2)
[2016-08-05] MEDS: DRONABINOL 2.5 MG CAP PO SCH ×2 (08:27→17:16)
[2016-08-05] MEDS: oxyCODONE ER 20 MG TAB.ER.12H PO SCH ×2 (08:28→21:41)
[2016-08-05] MEDS: LORazepam 0.5 MG TAB PO SCH ×3 (09:38→21:41)
[2016-08-05] MEDS: POLYETHYLENE GLYCOL 3350 17 GM POWD.PACK PO SCH (09:38)
[2016-08-05] MEDS ORDERED: NA PHOS,M-B/NA PHOS,DI-BA 133 ML ENEMA RECTAL ONE (14:53)
--- NOTE | 2016-08-05 18:31 | PN ---
DATE OF SERVICE: 08/05/2016 PRESENTING COMPLAINT: Falls, weak, tired. INTERVAL HISTORY: This is a patient diagnosed with esophageal cancer who has not responded to treatment, present at the bedside. Patient ( ) weak and tired. Had urinary retention. Diaz catheter was placed. The patient barely eating, having some pain with the Diaz catheter. ( ) edematous. Review of systems attempted for constitutional, cardiovascular, GI, pulmonary; genitourinary, relevant findings as above. Current medications are reviewed and include ceftriaxone and Marinol. On examination, temperature 98.1, pulse 94, respiration 18, blood pressure 157/94, pulse ox 96% on room air. GENERAL APPEARANCE: Lying in bed, very tired -appearing. EYES: Pupils equal. Conjunctivae pale. NECK: JVD not raised. Mass not palpable. RESPIRATORY: Effort normal. LUNGS: Diminished breath sounds. CARDIOVASCULAR: First and second seconds normal. Edema present. ABDOMEN: Soft, nontender. GENITOURINARY: Catheter is present. PSYCHIATRY: Patient is somewhat delirious. INVESTIGATIONS: White count ( ), hemoglobin 8.9, potassium 3.7, albumin is 2.7. ASSESSMENT: 1. Acute delirium, multifactorial including infection. 2. Acute severe urinary tract infection, present on admission. 3. Severe protein calorie malnutrition from poor oral intake from underlying malignancy/esophageal cancer. 4. Esophageal cancer having failed outpatient treatment. 5. Benign prostatic hypertrophy with bladder outflow obstruction, patient not requiring a Diaz catheter. 6. Chronic insomnia. 7. Medical debility from underlying cancer. 8. Anorexia significant from underlying cancer. 9. Decision to proceed with hospice care. PLAN: Continue current medication and treatment plan. Patient is doing poorly. We will talk with the about hospice care. Advanced care planning: Had a [id number] meeting with patient in detail. She understands overall poor prognosis and the patient rapidly downhill. The patient is barely eating though he thought he was actually eating. Patient's edema is from severe malnutrition. The patient is very weak and tired. She is agreeable to proceed with hospice. She will look at the hospice house in [place]. Hospice has been consulted for the same. I also spoke to patient's son about the same. Also did try to explain to the patient, but he was not totally with it. The total time spent for advanced care planning was about 35 minutes.
[2016-08-05] MEDS: MIRTAZAPINE 15 MG TAB PO SCH (20:44)
--- NOTE | 2016-08-05 22:14 | P.PN ---
Subjective Principal diagnosis: Dehydration, metastatic esophageal cancer Objective - Vital Signs Vital signs: Vital Signs Temp 98.7 F 08/05/16 15:00 Pulse 95 08/05/16 15:00 Resp 16 08/05/16 15:00 BP 153/88 08/05/16 15:00 Pulse Ox 95 08/05/16 15:00 Intake & Output 08/05/16 08/05/16 08/06/16 06:59 18:59 06:59 Intake Total 590 Output Total 2200 1500 Balance -1610 -1500 Intake: Oral 590 Output: Urine 2200 1500 Straight 1100 1500 Other: Voiding Method Bedside Commode Indwelling Catheter Urinal # Voids 2 # Bowel Movements 1 - Constitutional General appearance: Present: no acute distress - EENT Eyes: Present: EOMI, PERRLA ENT: Present: hearing grossly normal, normal oropharynx - Respiratory Respiratory: bilateral: CTA - Cardiovascular Rhythm: regular Heart sounds: normal: S1, S2 - Gastrointestinal General gastrointestinal: Present: normal bowel sounds, soft - Neurologic Neurologic: Present: CNII-XII intact - Musculoskeletal Musculoskeletal: Present: generalized weakness - Psychiatric Psychiatric: Present: A&O x's 3 - Labs CBC & Chem 7: 08/05/16 06:10 08/05/16 06:10 Labs: Abnormal Lab Results - Last 24 Hours (Table) 08/05/16 08/05/16 Range/Units 06:10 06:10 RBC 2.98 L (4.30-5.90) m/uL Hgb 8.9 L (13.0-17.5) gm/dL Hct 28.3 L (39.0-53.0) % RDW 16.5 H (11.5-15.5) % Carbon Dioxide 31 H (22-30) mmol/L Calcium 12.4 H (8.4-10.2) mg/dL AST 14 L (17-59) U/L Total Protein 5.7 L (6.3-8.2) g/dL Albumin 2.7 L (3.5-5.0) g/dL Assessment and Plan (1) Esophageal cancer Narrative/Plan: The pt has metastatic disease which has progressed on multiple line of therapy. He has just started Opdivo. He has continued to decline. Despite hydration and some subjective improvement, he still requires 2 person assist for simple transfer. His stated to us that the pt had indicated previously that he did not want excessive measures if he was declining. She also felt that the pt was having side effects from the treatment, and was getting weaker. Thus there appears to be legitimate concern whether he can continue coming to the office to continue treatment on discharge. Based on her request, prognosis, continues aggressive medical management vs comfort care was discussed with the pt. He was advised that though impressive response can occur, the overall response rate and duration of disease control with Opdivo is overall small. His progressive decline can affect his ability to continue and tolerate treatment. Thus comfort care is a very reasonable consideration. Even for pt's opting for comfort care, a feeding tube placement to enable administration of medications etc can be considered He is currently undecided. He will be assessed by PT, to see if there is reasonable hope of functional recovery sufficient for him to go home and continue treatment. He will discuss further with his . We will revisit in the AM Status: Acute (2) Dehydration Narrative/Plan: His BUN /Cr ratio is improved with hydration. Continue the same Status: Acute (3) Failure to thrive in adult Narrative/Plan: Pt was open to the idea of a feeding tube, though he had been opposed to the same in the past per the . They were advised that this can be considered even from a comfort standpoint. Status: Acute
[2016-08-06] MEDS: LORazepam 0.5 MG TAB PO SCH ×2 (05:10→09:17)
[2016-08-06] MEDS: 0.9% NACL WITH KCL 20 MEQ/L 1,000 ML IV SCH (05:14)
[2016-08-06] MEDS ORDERED: LORazepam 1 MG TAB PO PRN (07:27)
--- NOTE | 2016-08-06 07:27 | P.GSCN ---
History of Present Illness Consult date: 08/06/16 Reason for Consult: Urinary Retention Requesting physician: David Call History of present illness: The patient is a 66-year-old white male well known to Dr. Navas. He underwent a TURP one year ago. He has recently experienced difficulty voiding. He was straight catheterized yesterday on 2 occasions, with catheterization volumes of 1100 mL and 1500 mL. The patient is confused, and the history was obtained from his . Review of Systems - Genitourinary Denies dysuria, Denies hematuria Past Medical History Past Medical History: Cancer, Hypertension, Prostate Disorder, Pulmonary Embolus (PE), Renal Disease Additional Past Medical History / Comment(s): Esophageal CA-last chemo 2 weeks ago [facility], febrile neutropenia/sepsis r/t chemo immunosuppression, recent insomnia but pt states now is sleeping better, kidney stones, BPH, ? dementia. History of Any Multi-Drug Resistant Organisms: None Reported Past Surgical History: Cholecystectomy, Hernia Repair Additional Past Surgical History / Comment(s): [facility], Ischium soft tissue biopsy, mediport to R subclavian, feeding tube insertion and removal, EGD/colonoscopy, Coco fundoplication, schrapnel removed from back ([place]), vasectomy with post op hematoma then surgery for hematoma, bilateral cataract removal with lens implants. Past Anesthesia/Blood Transfusion Reactions: Motion Sickness, Postoperative Nausea & Vomiting (PONV) Past Psychological History: Anxiety Additional Psychological History / Comment(s): Pt resides with his spouse. He uses a walker to ambulate. He has not driven for awhile d/t illness, his spouse drives him to [employer]. He has a home care person (does not recall name of company) who come to the house daily, manages his meds and assists him with ADLs as needed. He is a [place] . He served in the [employer] Smoking Status: Never smoker Past Alcohol Use History: None Reported Past Drug Use History: None Reported - Past Family History Father Family Medical History: Cancer Additional Family Medical History / Comment(s): Father had throat cancer. Mother Family Medical History: No Reported History Additional Family Medical History / Comment(s): Mother is healthy and is 86yrs old. Medications and Allergies Home Medications Medication Instructions Recorded Confirmed Type Mirtazapine [Remeron] 30 mg PO HS 10/04/16 01/24/17 History Ibuprofen [Motrin] 400 mg PO Q6H PRN 05/31/16 08/03/16 History oxyCODONE HCL 30 mg PO Q4H 06/17/16 08/03/16 History fentaNYL 75MCG/HR PATCH [Duragesic 1 patch TRANSDERM Q48H 07/13/16 08/03/16 History 75MCG/HR] LORazepam [Ativan] 0.5 mg PO Q8H 08/03/16 08/03/16 History Loperamide [Imodium] 2 mg PO QID PRN 08/03/16 08/03/16 History Nivolumab [Opdivo] 240 mg IV Q14D 08/03/16 08/03/16 History Polyethylene Glycol 3350 [Miralax] 17 gm PO DAILY 08/03/16 08/03/16 History fentaNYL 100MCG/HR PATCH 1 patch TRANSDERM Q48H 08/03/16 08/03/16 History [Duragesic 100MCG/HR] oxyCODONE ER [OxyCONTIN 20MG E.R] 20 mg PO Q12HR 08/03/16 08/03/16 History Allergies Allergy/AdvReac Type Severity Reaction Status Date / Time No Known Allergies Allergy Verified 08/03/16 06:36 Surgical - Exam Vital Signs Temp Pulse Resp BP Pulse Ox 98.1 F 89 18 150/95 98 08/03/16 06:34 08/03/16 06:34 08/03/16 06:34 08/03/16 06:34 08/03/16 06:34 - General well developed, well nourished, no distress - Genitourinary normal penis with no external lesions, testicles present Results - Labs 08/05/16 06:10 08/05/16 06:10 Abnormal Lab Results - Last 24 Hours (Table) 08/05/16 08/05/16 Range/Units 06:10 06:10 RBC 2.98 L (4.30-5.90) m/uL Hgb 8.9 L (13.0-17.5) gm/dL Hct 28.3 L (39.0-53.0) % RDW 16.5 H (11.5-15.5) % Carbon Dioxide 31 H (22-30) mmol/L Calcium 12.4 H (8.4-10.2) mg/dL AST 14 L (17-59) U/L Total Protein 5.7 L (6.3-8.2) g/dL Albumin 2.7 L (3.5-5.0) g/dL Diabetes panel 08/05/16 Range/Units 06:10 Sodium 144 (137-145) mmol/L Potassium 3.7 (3.5-5.1) mmol/L Chloride 105 (98-107) mmol/L Carbon Dioxide 31 H (22-30) mmol/L BUN 17 (9-20) mg/dL Creatinine 0.76 (0.66-1.25) mg/dL Glucose 88 (74-99) mg/dL Calcium 12.4 H (8.4-10.2) mg/dL AST 14 L (17-59) U/L ALT 23 (21-72) U/L Alkaline Phosphatase 101 (38-126) U/L Total Protein 5.7 L (6.3-8.2) g/dL Albumin 2.7 L (3.5-5.0) g/dL Calcium panel 08/05/16 Range/Units 06:10 Calcium 12.4 H (8.4-10.2) mg/dL Albumin 2.7 L (3.5-5.0) g/dL Pituitary panel 08/05/16 Range/Units 06:10 Sodium 144 (137-145) mmol/L Potassium 3.7 (3.5-5.1) mmol/L Chloride 105 (98-107) mmol/L Carbon Dioxide 31 H (22-30) mmol/L BUN 17 (9-20) mg/dL Creatinine 0.76 (0.66-1.25) mg/dL Glucose 88 (74-99) mg/dL Calcium 12.4 H (8.4-10.2) mg/dL Adrenal panel 08/05/16 Range/Units 06:10 Sodium 144 (137-145) mmol/L Potassium 3.7 (3.5-5.1) mmol/L Chloride 105 (98-107) mmol/L Carbon Dioxide 31 H (22-30) mmol/L BUN 17 (9-20) mg/dL Creatinine 0.76 (0.66-1.25) mg/dL Glucose 88 (74-99) mg/dL Calcium 12.4 H (8.4-10.2) mg/dL Total Bilirubin 0.6 (0.2-1.3) mg/dL AST 14 L (17-59) U/L ALT 23 (21-72) U/L Alkaline Phosphatase 101 (38-126) U/L Total Protein 5.7 L (6.3-8.2) g/dL Albumin 2.7 L (3.5-5.0) g/dL Assessment and Plan (1) Urinary retention Status: Acute Plan: The patient is a 66-year-old white male with advanced esophageal cancer. A computed tomography scan in June 2016 showed bladder distention, as well as a metastatic lesion at the penile base. In view of this, it appears that the urinary retention has been present for perhaps several months. His states that he is being transferred to hospice care today. She also states that he has been pulling at the catheter. I do not feel that removal of the catheter is appropriate, as the urinary retention will persist. However, I feel it would be preferable that he be intermittently catheterized to avoid the discomfort of an indwelling catheter and the potential trauma associated with him pulling on it. I suggested to his that she discussed this approach with the staff at the hospice care facility, and we will of course be glad to improve the orders for this if desired.
[2016-08-06 08:21] VITALS: BP 145/84; PULSE 89; TEMP 98.3
[2016-08-06] MEDS: DRONABINOL 2.5 MG CAP PO SCH (09:02)
[2016-08-06] MEDS: oxyCODONE ER 20 MG TAB.ER.12H PO SCH (09:02)
[2016-08-06] MEDS: POLYETHYLENE GLYCOL 3350 17 GM POWD.PACK PO SCH (09:04)
[2016-08-06 11:52] VITALS: RESP 18
--- NOTE | 2016-08-06 15:04 | P.PN ---
Subjective Principal diagnosis: fall, weakness Mr. Ahn is a very pleasant male pt with progressive metastatic esophageal malignancy most recently treated with immunotherapy x 2 cycles. Pt has progressively become weaker and fell which is what he is currently hospitalized for. He has continually declined physically, he requires ATC care and assistance with ADLs. He is confused and not responding appropriately to questions, his family feels that he is comfortable at this time. Objective - Vital Signs Vital signs: Vital Signs Temp 98.3 F 08/06/16 07:00 Pulse 89 08/06/16 07:00 Resp 18 08/06/16 08:00 BP 145/84 08/06/16 07:00 Pulse Ox 93 L 08/06/16 07:00 Intake & Output 08/05/16 08/06/16 08/06/16 18:59 06:59 18:59 Intake Total 590 700 Output Total 1500 1300 860 Balance -3128 -906 -160 Intake: Intake, IV Titration 700 Amount 0.9% NaCl with KCl 20 Meq 700 /l 1,000 ml @ 100 mls/hr IV .Q10H RIANA Rx#: [id number] Oral 590 Output: Urine 1500 1300 860 Straight 1500 Other: Voiding Method Indwelling Catheter Indwelling Catheter Indwelling Catheter # Bowel Movements 1 - Exam Pt is sitting up in bed, weak and requiring assistance to move legs, LUE is restricted in movement, pt is alert, he does not answer questions appropriately , speech is noted to be slurred a bit. Respirations are even and unlabored, he does not visually to be in pain. - Constitutional General appearance: Present: cooperative, no acute distress, thin - Labs CBC & Chem 7: 08/05/16 06:10 08/05/16 06:10 Assessment and Plan (1) Esophageal adenocarcinoma Status: Acute (2) Anemia aplastic aregenerative Status: Chronic Plan: Case discussed with Dr. Arredondo. Pt health continues to decline. Any treatment at this time would more likely cause harm to the pt without any benefit. This was discussed in detail with and daughter, all questions answered to the best of my ability. Pt is going to be transferred to hospice house as soon as orders have been processed.
--- NOTE | 2016-08-07 12:19 | DS ---
DATE OF ADMISSION: 08/03/2016 DATE OF DISCHARGE: 08/06/2016 FINAL DIAGNOSES: 1. Esophageal cancer advancing, having failed outpatient treatment. 2. Acute delirium, multifactorial including drug induced and infection. 3. Acute severe urinary tract infection, present on admission. 4. Severe protein calorie malnutrition from poor oral intake from underlying malignancy/esophageal cancer. 5. Benign prostatic hypertrophy with bladder outflow obstruction, patient requiring a Diaz catheter. 6. Chronic insomnia. 7. Medical debility from underlying cancer. 8. Anorexia significant from underlying cancer. HOSPITAL COURSE: This is a patient having failed outpatient treatment for cancer treatment, presented with increasing falls, weakness, weak and tired, becoming more delirious. Had multiple ( ) I discussed with daughter and and eventually decided to make him hospice. Again today it was discussed with her. Patient will be ( ) hospice. Also spoke to patient's daughter. Patient ( ). On examination, the patient is delirious with signs of malnutrition. DISCHARGE MEDICATIONS: 1. Ativan 1 mg p.o. q.4 p.r.n. for anxiety. 2. Remeron 30 mg p.o. q.h.s. 3. Roxanol 5 mg q.4 p.r.n. 4. Scopolamine patch q.72 hours. 5. Duragesic 175 mcg patch q. 48 hours. 6. OxyContin 80 mg p.o. q.12. DISPOSITION: [facility] [place] with hospice. Follow up with Dr. Kumar zhou. DEANDRAA visiting nurse to follow. Discharge planning more than 35 minutes.
== END 2016-08-06 15:38 ==
LOC: EC 06:33 → 5MS5E 11:41 → 5ONC 15:15
PROVIDERS: ADMIT Hospitalist; ATTEND Hospitalist
DX: C15.9 Malignant neoplasm of esophagus, unspecified (principal); E86.0 Dehydration; C79.51 Secondary malignant neoplasm of bone; D63.0 Anemia in neoplastic disease; E43 Unspecified severe protein-calorie malnutrition; E87.5 Hyperkalemia; E87.6 Hypokalemia; F41.9 Anxiety disorder, unspecified; F51.04 Psychophysiologic insomnia; I10 Essential (primary) hypertension; K25.9 Gastric ulcer, unspecified as acute or chronic, without hemorrhage or perforation; K26.9 Duodenal ulcer, unspecified as acute or chronic, without hemorrhage or perforation; K44.9 Diaphragmatic hernia without obstruction or gangrene; N32.0 Bladder-neck obstruction; N39.0 Urinary tract infection, site not specified; N40.0 Benign prostatic hyperplasia without lower urinary tract symptoms; R29.6 Repeated falls; R62.7 Adult failure to thrive; Z86.711 Personal history of pulmonary embolism; Z92.21 Personal history of antineoplastic chemotherapy; I48.91 Unspecified atrial fibrillation; R07.1 Chest pain on breathing; M25.552 Pain in left hip; Z79.1 Long term (current) use of non-steroidal anti-inflammatories (NSAID); Z79.891 Long term (current) use of opiate analgesic; Z79.899 Other long term (current) drug therapy; R41.82 Altered mental status, unspecified; Z87.442 Personal history of urinary calculi
CPT/HCPCS: 36415; 93005; 97162; 80053 ×2; 80048; 83735; 85025; 85027; 85610; 85730 ×2; 81001; 71101; 72170; 72125; 70450; 70460; 99285; 96365; 96367; 96366; 96375; 96361 ×3; G0378 ×4; J2001; Q0167 ×3; J3480; J0696 ×3; J1170; J3475; Q9967